=== PATIENT | male | born 1980 | race Caucasian/White ===

== ENCOUNTER → 2020-06-11 07:31 | Outpatient (CLI) | payer BC, SELFPAY ==
--- NOTE | ~2020-06-11 | US_ITS ---
EXAMINATION: US abdomen limited EXAM DATE: 06/11/2020 07:51 INDICATION: R10.11 - Right upper quadrant pain. TECHNIQUE: Multiple grayscale and Doppler images of the abdomen right upper quadrant were obtained (b y a technologist who performed the scan) and subsequently reviewed. There is no prior study for juliette rodriguez. FINDINGS: The pancreatic head and body are normal in appearance. The pancreatic tail is not visualized. The l iver has normal echogenicity and contour. There are no focal liver lesions identified. There is no evidence of intrahepatic biliary duct dilation. Portal venous flow was seen in the hepatopedal, nor mal direction and has normal Doppler waveform. No right-sided hydronephrosis. Common bile duct measures 4 mm, which is normal. The gallbladder wall is normal in thickness, with ex pected amount of distention. No sonographic evidence of pericholecystic fluid. There are 2 regions along the inferior wall of the gallbladder likely small polyps measuring 5 mm each. These are not lik alyson clinically significant. Technologist performing exam reports patient did not demonstrate sonogra phic Tracey's sign. Please note that this sign is less reliable in patients who have received pain m edication. IMPRESSION: Two small gallbladder polyps not likely clinically significant. Otherwise unremarkable ex am. Reviewed, dictated and finalized at location A. HER EMOTIONALLY IMPAIRED IMPRESSION: Two small gallbladder polyps not likely clinically significant. Oth erwise unremarkable exam.
== END ==
PROVIDERS: Visit Provider Physician Assistant
DX: R10.11 Right upper quadrant pain (principal); K82.4 Cholesterolosis of gallbladder
CPT/HCPCS: 76705

== ENCOUNTER 2020-06-16 08:46 | Emergency (ER) | payer BC, SELFPAY ==
[2020-06-16] VITALS (12 sets, daily range): BP systolic 115–148; BP diastolic 66–91; PULSE 56–80; RESP 11–19; TEMP 36.6; O2SAT 98–100
--- NOTE | ~2020-06-16 | CT_ITS ---
EXAMINATION: CT abdomen pelvis w con DATE: 06/16/2020 09:41 INDICATION: Right lower quadrant pain, right upper quadrant abdominal pain. TECHNIQUE: Computed tomography (CT) of the abdomen and pelvis was performed with 100 cc Omnipaque 350 intravenous contrast. Automated exposure control and iterative reconstruction technique were employe d. Exam dose: 487.34 mGy-cm total exam DLP. COMPARISON: 06/07/2020 limited abdominal ultrasound examination FINDINGS: Minimal focal atelectasis or scarring at the posterior right lung base. Normal heart size. No pericardial or pleural effusion. No suspicious hepatic mass lesion. No bile duct dilatation. The gallbladder is present. No gallbladde r wall thickening or pericholecystic fluid or fat stranding. A couple of calcified splenic granulomas are noted. No splenomegaly. No pancreatic mass lesion, calcification or ductal dilatation. Normal morphology of the adrenal glands. 10 mm left renal cyst. Otherwise no urinary tract mass lesion or calculus or hydroureteronephrosis. T he urinary bladder is unremarkable. Prostate calcifications are noted. Normal appendix. Minimal left colon diverticulosis; no CT evidence of diverticulitis. No bowel obstru ction, bowel wall thickening, pneumatosis or intraperitoneal free air. Small fat-containing umbilical hernia. Included skeletal structures are unremarkable. IMPRESSION: 10 mm left renal cyst Minimal colonic diverticulosis Reviewed, dictated and finalized at [facility]. Reviewed, dictated and finalized at location A. T COLOR MATCHER
[2020-06-16 09:13] LABS: Basophils Absolute Auto 0.1 K/mm3 (0.0-0.1); Basophils Percent Auto 1.1 % (0.2-1.2); Eosinophils Absolute Auto 0.1 K/mm3 (0-0.3); Eosinophils Percent Auto 2.5 % (0-4.4); Hematocrit 48.7 % (42.0-52.0); Hemoglobin 16.2 g/dL (14.0-18.0); Immature Granulocyte Absolute 0.01 K/mm3 (0.00-0.031); Immature Granulocyte Percent A 0.2 % (0-0.5); Lymphocytes Absolute Auto 1.78 K/mm3 (0.9-3.2); Lymphocytes Percent Auto 31.5 % (18.3-44.2); Mean Corpuscular HGB Conc 33.3 g/dl (32-36); Mean Corpuscular Hemoglobin 30.5 pg (26-34); Mean Corpuscular Volume 91.7 fl (80-100); Mean Platelet Volume 9.6 fl (7.4-10.4); Monocytes Absolute Auto 0.5 K/mm3 (0.1-0.6); Monocytes Percent Auto 8.1 % (2.6-8.5); Neutrophils Absolute Auto 3.2 K/mm3 (1.3-6.7); Neutrophils Percent Auto 56.6 % (45.5-73.1); Platelet Count Result 224 k/mm3 (150-375); Red Blood Count 5.31 M/mm3 (4.6-6.20); Red Cell Distribution Width 12.5 % (11.5-14.5); White Blood Count 5.7 K/mm3 (4.5-10.0)
[2020-06-16 09:15] LABS: Add Urine Microscopic? NO; Appearance Urine Clear (Clear); Bilirubin Urine Negative (Negative); Blood Urine Negative (Negative); Color Urine Yellow (Yellow); Glucose Urine UA Negative (Negative); Ketones Urine Negative (Negative); Leukocyte Esterase Ur Negative LEU/UL (Negative); Nitrate Urine Negative (Negative); Protein Urine Negative (Negative); Specific Grav Ur 1.018 (1.001-1.035); Urobilinogen Urine Negative mg/dL (<2.0)
[2020-06-16] MEDS: SODIUM CHLORIDE 0.9% IV 1,000 ML 150 ML IV CONT (09:21)
[2020-06-16 09:25] LABS: Alanine Aminotransferase 26 U/L (4-50); Albumin Level 4.9 g/dL (3.5-5.1); Alkaline Phosphatase 81 U/L (38-126); Anion Gap 9 mmol/L (8-16); Aspartate Amino Transferase 33 U/L (17-59); Bilirubin,Total 0.7 mg/dL (0.2-1.3); Blood Urea Nitrogen 22 mg/dL (9-20); Calcium 9.7 mg/dL (8.4-10.2); Carbon Dioxide 31 mmol/L (22-30); Chloride 99 mmol/L (98-107); Estimated CRCL calculation 102 ml/min; Estimated Glomerular Filt Rate > 60; Glucose 122 mg/dL (75-110); Lipase 84 U/L (23-300); Potassium 4.1 mmol/L (3.4-5.0); Sodium 139 mmol/L (137-145)
--- NOTE | 2020-06-16 10:40 | ED.GENADULT ---
HPI - General Adult General Chief complaint: Abdominal Pain Stated complaint: R sided ABD pain Time Seen by Provider: 06/16/20 08:53 Source: patient Mode of arrival: ambulatory Limitations: no limitations History of Present Illness HPI narrative: 39-year-old with a history of anxiety disorder and depression, s/p cervical discectomy done about a month ago here with complaints of right lower scapular pain for approximately for past few months. Patient states that he is unable to eat or drink secondary to nausea and pain. Patient also mentions that he had outpatient scans done which showed polyps in his gallbladder. He denies any fever or chills. Patient states that his pain is mostly in the nighttime and it is exactly in the same location and is unable to sleep. Patient is off his anxiety medication for past few months. Onset (ago): month(s) (1) Location: back (right infra scapular) Radiation: non-radiation Severity: moderate Quality: dull Pain Consistency: constant Relieving factors: none Exacerbating factors: eating Associated symptoms: denies other symptoms Related Data Home Medications Medication Instructions Recorded Confirmed acetaminophen 300 mg-codeine 15 mg 1 tablet PO BID PRN 06/08/20 tablet gabapentin 300 mg capsule 300 mg PO TID 06/08/20 Allergies Allergy/AdvReac Type Severity Reaction Status Date / Time Penicillins Allergy Unknown Unknown Verified 06/16/20 09:06 Review of Systems Review of Systems: All systems reviewed & are unremarkable except as noted in HPI and below Constitutional: Constitutional: Reports no additional constitutional complaints Eyes: Eyes: Reports no additional eye complaints ENT: Reports system reviewed and no additional complaints, except as documented Cardiovascular: Cardiovascular: Reports no additional cardiovascular complaints Respiratory: Respiratory: Reports no additional respiratory complaints Gastrointestinal: Gastrointestinal: Reports as per HPI Musculoskeletal: Musculoskeletal: Reports as per HPI Neurologic: Reports system reviewed and no additional complaints, except as documented Psychiatric: Psychiatric: Reports anxiety PMFSH Surgical History Surgical History Previous back surgery Family History Family History Mother Family history of chronic obstructive pulmonary disease Family history of emphysema Social History Social History Smoking status: Never smoker Second hand tobacco smoke exposure: No Alcohol intake: never Gender identity (if verbalized by the patient): Male Exam Narrative: Exam Narrative: GENERAL: Well-appearing, thin, and in no acute distress. HEAD: Normocephalic, atraumatic. EYES: PERRLA and EOMI. ENT: Nares clear, no rhinorrhea or epistaxis. Mucous membranes moist. NECK: Supple. CHEST: Clear to auscultation. No respiratory distress. mild tenderness on palpation in the right infrascapular area HEART: Regular rate and rhythm. No murmur heard. Normal peripheral pulses. ABDOMEN: Soft, mild tenderness in the right lower abdomen above the suprapubic line, nondistended, normal active bowel sounds. EXTREMITIES: Normal range of motion. No edema. SKIN: Warm, dry, no rash. NEURO: No focal deficits. Alert and oriented x3. PSYCH: Normal mood and affect. Course Course Emergency Course: Patient comfortably lying on the bed, informed him about his lab work, CT scan. Patient is very upset that his scans came back and normal he wants his gallbladder out I have informed him and explained to him that his gallbladder and liver enzymes are all normal as per the scan. This time the pain appears to be more musculoskeletal and with underlying anxiety he is unable to sleep. I discussed with Dr. Nydia Mckay , as per the conversation patient is off his anxiety medications she will s
== END 2020-06-16 11:16 | disposition home or self-care (01) ==
PROVIDERS: Emergency Provider Family Medicine; PCP Family Medicine
DX: R10.9 Unspecified abdominal pain (principal); M54.6 Pain in thoracic spine; R11.10 Vomiting, unspecified
CPT/HCPCS: 36415; 74177; 80053; 81003; 83690; 85025; 96360; 96361; 99284; J7030; Q9967

== ENCOUNTER → 2020-07-03 07:59 | Outpatient (CLI) | payer BC, SELFPAY ==
--- NOTE | ~2020-07-03 | MR_ITS ---
EXAMINATION: MR thoracic spine wo con EXAM DATE: 07/03/2020 08:36 INDICATION: Thoracic pain thoracic pain. Pain under right shoulder blade. TECHNIQUE: Multi-sequential, multiplanar MR images of the thoracic spine were obtained without contra st. Sagittal T1, T2, T2 fat saturation, axial T2 weighted images reviewed. Field of view was centere d to include the right ribs and most of the right scapula. Correlation is made to cervical MRI 017. FINDINGS: There is metallic artifact at the C5-6 and 6-7 levels, could be interbody fusion or disc re placements, correlate with surgical history. No thoracic scoliosis. There is mild diffuse thoracic fa cet arthropathy. There is mild disc bulge at T10-11. There is no thoracic central canal or neural for aminal stenosis. There is a small hemangioma within the T5 vertebral body. Posterior paraspinal muscu lature is unremarkable. No focal soft tissue mass or scapular signal abnormality identified. The spin al cord signal intensity and intrinsic morphology is normal. IMPRESSION: Mild thoracic spondylosis without stenosis. Reviewed, dictated and finalized at location D. ICES CLERK
== END ==
PROVIDERS: Visit Provider Nurse Practitioner Family
DX: M47.894 Other spondylosis, thoracic region (principal)
CPT/HCPCS: 72146

== ENCOUNTER 2023-09-08 13:29 | Outpatient (CLI) | payer BC, SELFPAY ==
--- NOTE | ~2023-09-08 | MR_ITS ---
MRI of the left shoulder Technique: Axial proton-density fat-sat images, coronal proton density fat-sat and T2 fat-sat images, and sagittal T1-weighted and T2 fat-sat images were acquired. Clinical History: Pain Findings: There is minimal AC joint degenerative change. Coracoclavicular, coracoacromial, coracohume ral ligaments are intact. Supraspinatus and infraspinatus tendons are intact, without partial or full-thickness tear. Subscapul terrence tendon is intact with mild tendinosis. Tendon of long head of the biceps is intact. No labral tear identified. Inferior glenohumeral ligament is intact. There is minimal glenohumeral joint effusion. No degenerati ve change of the glenohumeral joint. No fluid distention of the subacromial/subdeltoid bursa. No musc le atrophy or edema. Impression: Small glenohumeral joint effusion, nonspecific. No rotator cuff or labral tear. Reviewed, dictated and finalized at [facility]. Impression: Small glenohumeral joint effusion, nonspecific. No rotator cuff or labral tear.
--- NOTE | ~2023-09-08 | MR_ITS ---
EXAMINATION: MR cervical spine wo con DATE: 09/08/2023 14:20 INDICATION: Neck pain. TECHNIQUE: Magnetic resonance imaging (MRI) of the cervical spine was performed without intravenous c ontrast. COMPARISON: Cervical spine MRI 10/08/2016 FINDINGS: There is 2 mm anterolisthesis of C3 on C4 and C4 on C5, 3 mm retrolisthesis of C5 on C6, an d 2 mm retrolisthesis of C6 on C7. There are interbody devices at C5-C6 and C6-C7. The spinal cord is small and lower cervical spine with increased T2-weighted signal intensity at C5 and C6, consistent with myelomalacia. The following disc levels are specifically discussed: C2-C3: There is a central protrusion. There is mild right uncovertebral joint osteoarthritis. There i s severe bilateral facet joint osteoarthritis. There is mild bilateral neural foraminal stenosis. The re is no central canal stenosis. C3-C4: There is a central protrusion. There is moderate bilateral uncovertebral joint osteoarthritis. There is severe bilateral facet joint osteoarthritis. There is moderate bilateral neural foraminal s tenosis. There is mild central canal stenosis. C4-C5: There is a central extrusion. There is mild bilateral uncovertebral joint osteoarthritis. Ther e is severe bilateral facet joint osteoarthritis. There is moderate bilateral neural foraminal stenos is. There is mild central canal stenosis. C5-C6: There is moderate bilateral uncovertebral joint hypertrophy. There is moderate right and mild left facet joint osteoarthritis. There is mild right and moderate left neural foraminal stenosis. The re is mild central canal stenosis. C6-C7: There is moderate bilateral uncovertebral joint hypertrophy. There is severe right and moderat e left facet joint osteoarthritis. There is mild right and moderate left neural foraminal stenosis. T here is mild central canal stenosis. C7-T1: The disc does not extend beyond the endplate margin. There is no uncovertebral joint osteoarth ritis. There is severe bilateral facet joint osteoarthritis. There is mild bilateral neural foraminal stenosis. There is no central canal stenosis. IMPRESSION: 1. Interbody devices at C5-C6 and C6-C7 that may be disc replacements or fusion procedures. 2. Moderate cervical spondylosis. 3. Myelomalacia at C5 and C6. Reviewed, dictated and finalized at location E.
== END 2023-09-08 13:30 ==
LOC: MICIMG 13:30
PROVIDERS: PCP Nurse Practitioner Family; Visit Provider Nurse Practitioner Family
DX: M47.892 Other spondylosis, cervical region (principal); Z98.1 Arthrodesis status; M25.412 Effusion, left shoulder
CPT/HCPCS: 72141; 73221

== ENCOUNTER 2024-04-23 09:54 | Outpatient (CLI) | payer BC, SELFPAY ==
--- NOTE | ~2024-04-23 | MR_ITS ---
EXAMINATION: MR thoracic spine wo con DATE: 04/23/2024 10:44 INDICATION: Thoracic spine pain. TECHNIQUE: Magnetic resonance imaging (MRI) of the thoracic spine was performed without intravenous c ontrast. COMPARISON: Thoracic spine MRI 07/03/2020 FINDINGS: There are changes of anterior and posterior fusion procedures from C4 to C7. In the thoraci c spine, bone alignment is normal. There is mild chronic anterior wedging of T11-L1 vertebral bodies, likely physiologic. There is a hemangioma in T5 vertebral body. There is mildly decreased disc heigh t at T10-T11. At T10-T11, the disc is bulging with mild central canal stenosis. There is multilevel m ild facet joint osteoarthritis. At T1-T2, there is mild bilateral neural foraminal stenosis. At T10-T 11, there is mild bilateral neural foraminal stenosis. The spinal cord signal intensity is normal. IMPRESSION: 1. Mild thoracic spondylosis. Reviewed, dictated and finalized at location A. RMATICS NURSE
--- NOTE | ~2024-04-23 | MR_ITS ---
EXAMINATION: MR cervical spine wo con DATE: 04/23/2024 10:36 INDICATION: Neck pain. TECHNIQUE: Magnetic resonance imaging (MRI) of the cervical spine was performed without intravenous c ontrast. COMPARISON: Cervical spine MRI 09/08/2023 FINDINGS: There is 3 mm anterolisthesis of C4 on C5 and 2 mm anterolisthesis of C6 on C7. There are c hanges of anterior fusion procedure at C4-C5 with interbody device. There are interbody devices at C5 -C6 and C6-C7 that may be disc replacements or fusion procedures. There are changes of posterior fusi on procedure from C4 to C7 with lateral mass screws at C4, C6, and C7. Intervertebral disc heights ar e normal. There is increased T2-weighted signal intensity in the spinal cord at C5-C6, consistent wit h myelomalacia. The following disc levels are specifically discussed: C2-C3: There is a central protrusion. There is mild right uncovertebral joint osteoarthritis. There i s severe bilateral facet joint osteoarthritis. There is moderate right and mild left neural foraminal stenosis. There is no central canal stenosis. C3-C4: There is a central protrusion. There is moderate bilateral uncovertebral joint osteoarthritis. There is severe bilateral facet joint osteoarthritis. There is mild right and moderate left neural f oraminal stenosis. There is mild central canal stenosis. C4-C5: There is no uncovertebral joint hypertrophy. There is no facet joint hypertrophy. There is no neural foraminal stenosis. There is no central canal stenosis. C5-C6: There is moderate bilateral uncovertebral joint hypertrophy. There is no facet joint osteoarth ritis. There is mild bilateral neural foraminal stenosis. There is no central canal stenosis. There i s posterior decompression. C6-C7: There is severe bilateral uncovertebral joint hypertrophy. There is mild right facet joint hyp ertrophy. There is moderate bilateral neural foraminal stenosis. There is mild central canal stenosis with posterior decompression. C7-T1: The disc does not extend beyond the endplate margin. There is no uncovertebral joint osteoarth ritis. There is severe right and moderate left facet joint osteoarthritis. There is mild bilateral ne ural foraminal stenosis. There is no central canal stenosis. IMPRESSION: 1. Moderate cervical spondylosis. 2. Anterior fusion procedure at C4-C5. Disc replacements versus anterior fusion procedures at C5-C6 a nd C6-C7. 3. Posterior fusion procedure from C4 to C7. 4. Myelomalacia at C5-C6. Reviewed, dictated and finalized at location A. R ANALYST IMPRESSION: 1. Moderate cervical spondylosis. 2. Anterior fusion procedure at C4-C5. Disc replacements versus anterior fusion procedures at C5-C6 and C6-C7. 3. Posterior fusion procedure from C4 to C7. 4. Myelomalacia at C5-C6.
== END 2024-04-23 09:55 | disposition home or self-care (01) ==
LOC: GOSHIMG 09:54
PROVIDERS: PCP Nurse Practitioner Family; Visit Provider Nurse Practitioner Family
DX: M47.815 Spondylosis without myelopathy or radiculopathy, thoracolumbar region (principal); M47.812 Spondylosis without myelopathy or radiculopathy, cervical region; Z98.1 Arthrodesis status; G95.89 Other specified diseases of spinal cord
CPT/HCPCS: 72141; 72146